=== PATIENT | female | born 1975 | race African-American/Black ===

== ENCOUNTER 2024-01-22 11:37 | Emergency (ER) | payer SELFPAY ==
[~2024-01-22] VITALS: Ht 170.2 cm; Wt 111.1 kg
[2024-01-22 11:50] VITALS: PULSE 93; RESP 16; TEMP 98.5; O2SAT 99
[2024-01-22] MEDS ORDERED: ONDANSETRON ODT4 MG PO (11:58)
[2024-01-22] MEDS ORDERED: NAPROXEN250 MG PO (12:26)
== END 2024-01-22 13:00 | disposition home or self-care (01) ==
LOC: ER 11:45
DX: R11.0 Nausea (principal); R51.9 Headache, unspecified; M79.10 Myalgia, unspecified site; I10 Essential (primary) hypertension; Z86.73 Personal history of transient ischemic attack (TIA), and cerebral infarction without residual deficits; E78.5 Hyperlipidemia, unspecified; G43.909 Migraine, unspecified, not intractable, without status migrainosus; F41.9 Anxiety disorder, unspecified; D64.9 Anemia, unspecified
CPT/HCPCS: 99282